=== PATIENT | female | born 1945 | race Caucasian/White ===

== ENCOUNTER 2016-07-21 13:13 | Observation (INO) | payer OTHER ==
[~2016-07-21] VITALS: Ht 157.5 cm; Wt 71.3 kg
[~2016-07-21 13:13] MED LIST: ADULT LOW DOSE81 M1 PO; Aspirin E.C. PO; BAYER CHILDREN'81 M1 PO; BUDEPRION SR150 MG PO; DIOVAN320 MG PO; HYDROCHLOROTHIA25 MG PO; HYDRODIURIL,ORE25 MG PO; LEXAPRO20 MG PO; Neurontin PO; Norco 7.5/325 PO; OMEPRAZOLE20 MG PO; OMEPRAZOLE40 MG PO; PRAVACHOL80 MG PO; ZANAFLEX2 MG PO
[2016-07-21 15:26] LABS: BASOPHIL COUNT 0.1 K/uL (0-0.1); EOSINOPHIL (%) 0.6 % (0-5); EOSINOPHIL COUNT 0.1 K/uL (0-0.3); IMMATURE GRANULOCYTE (%) 0.3 % (0.0-0.7); IMMATURE GRANULOCYTE COUNT 0.5 K/uL; LYMPHOCYTE COUNT 2.1 K/uL (1.0-2.8); MCH 29.7 PG (29.0-34.0); MCHC 34.9 G/DL (30.0-36.0); MCV 85.1 FL (83-99); MEAN PLAT.VOLUME 9.3 uM^3 (9.5-12.4); MONOCYTE (%) 4.8 % (3-12); MONOCYTE COUNT 0.7 K/uL (0-0.8); NEUTROPHIL (%) 79.9 % (45-76); NEUTROPHIL COUNT 12.3 K/uL (1.8-6.4); PLATELET COUNT 354 K/uL (156-360); RBC DIS.WIDTH-CV 12.4 % (11.8-14.6); RBC DIS.WIDTH-SD 37.1 % (39-53); RED BLOOD COUNT 4.82 M/uL (3.80-5.20); WHITE BLOOD COUNT 15.3 K/uL (4.1-10.2)
[2016-07-21 16:18] LABS: ANION GAP 12 MEQ/L (2-14); CHLORIDE 100 MEQ/L (99-109); POTASSIUM 4.1 MEQ/L (3.7-5.4); SAMPLE HEMOLYSIS CHECK 0; SAMPLE ICTERIC CHECK 0; SAMPLE LIPEMIA CHECK 0; SODIUM 137 MEQ/L (136-147); TOTAL BILIRUBIN 0.4 MG/DL (0.0-1.0)
[2016-07-21 16:24] LABS: ALKALINE PHOSPHATASE 73 IU/L (3-129); GFR ESTIMATE (CALCULATED) > 59 mL/min/; GLUCOSE 134 mg/dL (70-99); UREA NITROGEN (BUN) 16 mg/dL (9-23)
[2016-07-21 16:28] LABS: TROP-I INTERPRETATION NEGATIVE; TROPONIN-I < 0.01 ng/mL (0.0-0.30)
[2016-07-21] MEDS ORDERED: DIOVAN HCT 31 TABLE1 PO (18:32)
[2016-07-21] MEDS ORDERED: NEXIUM40 MG PO (18:33)
[2016-07-21] MEDS ORDERED: CLARITIN,ALAVAR10 MG PO (18:33)
[2016-07-21] MEDS ORDERED: LYRICA50 MG PO (18:33)
[2016-07-21] MEDS ORDERED: JANUVIA100 MG PO (18:33)
[2016-07-21] MEDS ORDERED: MUPIROCIN22 GM TP (18:34)
[2016-07-21] MEDS ORDERED: CALAMINE LOTIO120 ML TP (18:34)
[2016-07-21] MEDS ORDERED: GOLD BOND MED56.6 GM TP (18:35)
[2016-07-21] MEDS ORDERED: UNISOM25 MG PO (18:37)
[2016-07-21] MEDS ORDERED: METAMUCIL0.52 GM PO (18:37)
[2016-07-21] MEDS ORDERED: TUMS500 MG PO (18:38)
[2016-07-21 22:39] LABS: TROP-I INTERPRETATION NEGATIVE; TROPONIN-I < 0.01 ng/mL (0.0-0.30)
[2016-07-22 04:10] LABS: TROP-I INTERPRETATION NEGATIVE; TROPONIN-I < 0.01 ng/mL (0.0-0.30)
[2016-07-22 07:00] VITALS: BP 134/67
[2016-07-22 12:21] VITALS: BP 126/63
== END 2016-07-22 15:51 | disposition home or self-care (01) ==
LOC: EME 13:13 → EDOF 19:12 → 5WEST 19:12
PROVIDERS: Emergency Medicine; Physician Assistant
DX: R07.9 Chest pain, unspecified (principal); R10.13 Epigastric pain; I10 Essential (primary) hypertension; E11.9 Type 2 diabetes mellitus without complications; Z82.49 Family history of ischemic heart disease and other diseases of the circulatory system; Z88.5 Allergy status to narcotic agent; Z80.3 Family history of malignant neoplasm of breast; Z82.3 Family history of stroke
CPT/HCPCS: 71010; 80053; 84484; 85025; 93005; 94640 76; 94760; 94799; 99281; 99284; G0378; J1644